=== PATIENT | female | born 1975 | race African-American/Black ===

== ENCOUNTER → 2017-02-25 | Outpatient (CLI) | payer MEDICARE ==
--- NOTE | 2017-02-25 15:07 | US ---
EXAMINATION TYPE: US abdomen complete DATE OF EXAM: 02/25/2017 COMPARISON: NONE CLINICAL HISTORY: R10.2 PELVIC PAIN,R10.30 LOWER ABD PAIN. EXAM MEASUREMENTS: Liver Length: 12.5 cm Gallbladder Wall: Surgically absent cm CBD: 0.6 cm Spleen: 8.5 cm Right Kidney: 10.3 x 4.5 x 5.5 cm Left Kidney: 9.6 x 5.7 x 5.4 cm Pancreas: visualized portions wnl Liver: echogenic lesion near dome measures 2.7 x 2.1 x 1.8 cm Gallbladder: Surgically absent CBD: wnl Spleen: wnl Right Kidney: No hydronephrosis or masses seen no nephrolithiasis. Left Kidney: upper pole echogenic lesion measures 0.7 x 0.8 x 0.9 cm. No hydronephrosis or nephrol ithiasis. Upper IVC: wnl Abd Aorta: wnl IMPRESSION: 1. There is a 2.7 cm echogenic lesion involving the dome of the liver which most likely is related to hemangioma. This could be confirmed with CT scan. 2. Indeterminate left renal lesions due to small size. Could represent a small angiomyolipoma and cou ld also be evaluated with CT scan.
--- NOTE | 2017-02-25 15:09 | US ---
EXAMINATION TYPE: US pelvis complete transvag DATE OF EXAM: 02/25/2017 COMPARISON: NONE CLINICAL HISTORY: R10.2 PELVIC PAIN,R10.30 LOWER ABD PAIN. TECHNIQUE: Transvaginal (TV) and Transabdominal (TA) Date of LMP: patient states no cycles due to thyroid disorder EXAM MEASUREMENTS: Uterus: 7.3 x 3.2 x 5.2 cm Endometrial Stripe: 0.3 cm Right Ovary: 2.7 x 2.1 x 2.2 cm Left Ovary: 2.9 x 1.4 x 2.3 cm 1. Uterus: Anteverted heterogeneous with 1.3 x 1.0 x 1.3 cm fibroid 2. Endometrium: wnl 3. Right Ovary: wnl 4. Left Ovary: cyst measures 2.2 x 1.0 x 1.5 cm . 5. Bilateral Adnexa: wnl 6. Posterior cul-de-sac: no free fluid IMPRESSION: 1. The uterus is heterogeneous and contains a 1.3 cm hypoechoic lesion likely on the basis of a uteri ne fibroid. 2. Simple appearing left ovarian cyst measuring 2.2 cm.
== END ==
LOC: RADUSWWP 14:04
PROVIDERS: ATTEND Nurse Practitioner Family
DX: N83.202 Unspecified ovarian cyst, left side (principal); N28.89 Other specified disorders of kidney and ureter
CPT/HCPCS: 76700; 76830; 76856

== ENCOUNTER 2017-04-04 21:06 | Emergency (ER) | payer MEDICARE ==
[2017-04-04] MEDS ORDERED: ASPIRIN 81 MG PO STA (21:37)
--- NOTE | 2017-04-04 21:40 | ED ---
Chest Pain HPI - General Chief Complaint: Chest Pain Stated Complaint: Chest pain Time Seen by Provider: 04/04/17 21:11 Source: patient, RN/MD, EMS, RN notes reviewed Mode of arrival: EMS Limitations: no limitations - History of Present Illness Initial Comments: This is a 41-year-old female who states she has a history of angina as well as reversing the past who is a nonsmoker nondrinker who states for last week or so she's had retrosternal chest pain on the right side. 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 She states the pain normally goes away with rest but this time it wasn't going away spicy today and last more than an hour was dull pressure-like right sided 5/10 in severity. She also states that today it radiated from her front to her back. She's had no fevers no chills or sweats no cough or phlegm production. She states she had episodes at work today also even in spite of wearing a mask to shield her from the chemical exposure. Rested help today. MD Complaint: chest pain - Related Data Previous Rx's Medication Instructions Recorded Nitroglycerin Sl Tabs [Nitrostat] 0.4 mg SUBLINGUAL Q5M PRN #25 tab 04/04/17 Allergies Allergy/AdvReac Type Severity Reaction Status Date / Time oxcarbazepine Allergy Rash/Hives Verified 04/04/17 22:04 [From Trileptal] quetiapine [From Seroquel] AdvReac BLOOD Verified 04/04/17 22:04 PRESSURE DROPS sulfamethoxazole AdvReac Itching Verified 04/04/17 22:04 [From Bactrim] trimethoprim [From Bactrim] AdvReac Itching Verified 04/04/17 22:04 Review of Systems ROS Statement: Those systems with pertinent positive or pertinent negative responses have been documented in the HPI. ROS Other: All systems not noted in ROS Statement are negative. EKG Findings - EKG Results: EKG: interpreted by ANDERS WNL, sinus rhythm, normal axis, normal QRS, normal ST/ T, no acute changes (EKG shows normal sinus rhythm a 65 appear interval 138 QRS duration 82 QT since QTC of 422/[address]-T wave changes.) Past Medical History Additional Past Medical History / Comment(s): angina History of Any Multi-Drug Resistant Organisms: None Reported Past Psychological History: No Psychological Hx Reported Smoking Status: Never smoker Past Alcohol Use History: None Reported Past Drug Use History: None Reported General Exam - General Exam Comments Initial Comments: This is a well-developed well-nourished awake alert oriented 3 female Limitations: no limitations General appearance: alert, in no apparent distress Head exam: Present: atraumatic, normocephalic, normal inspection Eye exam: Present: normal appearance, PERRL, EOMI. Absent: scleral icterus, conjunctival injection, periorbital swelling ENT exam: Present: normal exam, mucous membranes moist Neck exam: Present: normal inspection. Absent: tenderness, meningismus, lymphadenopathy Respiratory exam: Present: normal lung sounds bilaterally. Absent: respiratory distress, wheezes, rales, rhonchi, stridor, chest wall tenderness, accessory muscle use Cardiovascular Exam: Present: regular rate, normal rhythm, normal heart sounds. Absent: systolic murmur, diastolic murmur, rubs, gallop, clicks GI/Abdominal exam: Present: soft, normal bowel sounds. Absent: distended, tenderness, guarding, rebound, rigid Extremities exam: Present: normal inspection, full ROM, normal capillary refill. Absent: tenderness, pedal edema, joint swelling, calf tenderness Back exam: Present: normal inspection Neurological exam: Present: alert, oriented X3, CN II-XII intact Psychiatric exam: Present: normal affect, normal mood Skin exam: Present: warm, dry, intact, normal color. Absent: rash Course Vital Signs 04/04/17 04/04/17 21:07 22:36 Temperature 97.9 F 98.0 F Pulse Rate 75 81 Respiratory 18 15 Rate Blood Pressure 138/86 122/56 O2 Sat by Pulse 100 100 Oximetry Chest Pain MDM - MDM The patient continues to be without pain at this time. I did discuss the findings with her x-rays negative for acute findings EKG was normal lab work was essentially within normal limits except for mildly elevated glucose. Patient states she did have a normal stress test 2 years ago. She was offered admission but declined at this time she was advised to take a baby aspirin every day and I will write for prescription for nitroglycerin for her. She is follow-up with her doctor and return if any problems whatsoever. Patient patient does understand and agree with this. Disposition Clinical Impression: Chest pain Disposition: HOME SELF-CARE Condition: Good Instructions: Chest Pain (ED) Additional Instructions: 81 mg of aspirin daily and nitroglycerin to be used when necessary. Follow-up with her doctor and return if any problems. Prescriptions: Nitroglycerin Sl Tabs [Nitrostat] 0.4 mg SUBLINGUAL Q5M PRN #25 tab PRN Reason: Chest Pain Referrals: Flavia Chavez MD [Primary Care Provider] - 1-2 days
[2017-04-04 22:03] LABS: Basophils % (A) 1 %; CH 32.5; CHCM 32.1; Eosinophils # (A) 0.1 k/uL (0-0.7); Eosinophils % (A) 2 %; HCT 40.2 % (34.0-46.0); HDW 1.96; Luc # (Auto) 0.06; Luc % (Auto) 2; Lymphocytes # (A) 1.5 k/uL (1.0-4.8); Lymphocytes % (A) 40 %; MCH 32.9 pg (25.0-35.0); MCHC 32.3 g/dL (31.0-37.0); MCV 101.7 fL (80.0-100.0); Macrocytosis Slight; Mean Platelet Volume 8.6; Monocytes # (A) 0.2 k/uL (0-1.0); Monocytes % (A) 5 %; Neutrophils # (A) 1.9 k/uL (1.3-7.7); Neutrophils % (A) 50 %; RBC 3.96 m/uL (3.80-5.40); RDW 13.1 % (11.5-15.5); WBC 3.8 k/uL (3.8-10.6); WBC (Perox) 3.88
--- NOTE | 2017-04-04 22:06 | XR ---
EXAMINATION TYPE: XR chest 2V DATE OF EXAM: 04/04/2017 COMPARISON: NONE HISTORY: Chest pain TECHNIQUE: Frontal and lateral views of the chest are obtained. FINDINGS: Heart and mediastinum are normal. Lungs are clear. Diaphragm is normal. Bony thorax appear s normal. IMPRESSION: Normal chest
[2017-04-04 22:14] LABS: INR 1.1 (<1.2); Partial Thromboplastin Time 26.4 sec (22.0-30.0)
[2017-04-04 22:16] LABS: ALT 31 U/L (9-52); AST 19 U/L (14-36); Alkaline Phosphatase 84 U/L (38-126); Amylase 65 U/L (30-110); Anion Gap 7 mmol/L; Blood Urea Nitrogen 10 mg/dL (7-17); Calcium 8.9 mg/dL (8.4-10.2); Carbon Dioxide 24 mmol/L (22-30); Chloride 105 mmol/L (98-107); Glucose 85 mg/dL (74-99); Magnesium 1.8 mg/dL (1.6-2.3); Non-African American GFR(MDRD) >60 (>60 ml/min/1.73 sqM); Potassium 3.6 mmol/L (3.5-5.1); Sodium 136 mmol/L (137-145); Total Bilirubin 0.8 mg/dL (0.2-1.3); Total Protein 6.6 g/dL (6.3-8.2)
[2017-04-04 22:23] LABS: Creatine Kinase 106 U/L (30-135)
[2017-04-04 22:36] LABS: Creatine Kinase MB 1.1 ng/mL (0.0-2.4); Troponin I <0.012 ng/mL (0.000-0.034)
[2017-04-04 23:16] VITALS: BP 120/67; PULSE 78; RESP 18; TEMP 98.2
== END 2017-04-04 23:16 | disposition home or self-care (01) ==
LOC: EC 21:06 → SUPCPDRO 21:06 → EC 23:16
DX: R07.9 Chest pain, unspecified (principal); Z88.8 Allergy status to other drugs, medicaments and biological substances; Z88.2 Allergy status to sulfonamides
CPT/HCPCS: 36415; 71020; 80053; 82150; 82550; 82553; 83690; 83735; 83880; 84484; 85025; 85379; 85610; 85730; 93005; 99285

== ENCOUNTER → 2017-06-02 | Outpatient (CLI) | payer MEDICARE ==
--- NOTE | 2017-06-09 13:25 | MM ---
Reason for exam: screening (asymptomatic). Last mammogram was performed 2 years ago. History: Patient is postmenopausal. Family history of breast cancer in aunt. Physical Findings: A clinical breast exam by your physician is recommended on an annual basis and results should be correlated with mammographic findings. MG 3D Screening Mammo W/Cad Bilateral CC and MLO view(s) were taken. Prior study comparison: May 23, 2015, mammogram, performed at [facility]. The breast tissue is heterogeneously dense. This may lower the sensitivity of mammography. No significant changes when compared with prior studies. ASSESSMENT: Negative, BI-RAD 1 RECOMMENDATION: Routine screening mammogram of both breasts in 1 year.
== END | disposition home or self-care (01) ==
LOC: RADMAMWWP 11:00
PROVIDERS: ATTEND Obstetrics & Gynecology
DX: Z12.31 Encounter for screening mammogram for malignant neoplasm of breast (principal)
CPT/HCPCS: 77063; 77067

== ENCOUNTER 2017-10-30 06:00 | Emergency (ER) | payer MEDICARE, OTHER ==
[2017-10-30] MEDS ORDERED: KETOROLAC 30 MG/ML 1 ML VIAL IVP STA (07:41)
--- NOTE | 2017-10-30 07:44 | ED ---
General Adult HPI - General Chief complaint: Extremity Problem,Nontraumatic Stated complaint: Leg swelling Time Seen by Provider: 10/30/17 07:18 Source: patient, RN notes reviewed Mode of arrival: ambulatory Limitations: no limitations - History of Present Illness Initial comments: Patient is a pleasant 42-year-old female presenting to the emergency department with extremity problems. Symptoms have been present for over a month now. Patient has been evaluated for this. Patient has had ultrasound done of her legs twice. Patient has been worked up for cardiac disease including x-ray. Patient has also had x-rays of her lower extremities. Patient state this is not a chronic problem. Patient has been using compression stockings with some improvement of swelling. Patient states there is some discomfort. Patient states the area involved does seem to migrate some. Patient noticed some discoloration in her legs the last few days. - Related Data Previous Rx's Medication Instructions Recorded Nitroglycerin Sl Tabs [Nitrostat] 0.4 mg SUBLINGUAL Q5M PRN #25 tab 04/04/17 Allergies Allergy/AdvReac Type Severity Reaction Status Date / Time oxcarbazepine Allergy Rash/Hives Verified 10/30/17 06:06 [From Trileptal] quetiapine [From Seroquel] AdvReac BLOOD Verified 10/30/17 06:06 PRESSURE DROPS sulfamethoxazole AdvReac Itching Verified 10/30/17 06:06 [From Bactrim] trimethoprim [From Bactrim] AdvReac Itching Verified 10/30/17 06:06 Review of Systems ROS Statement: Those systems with pertinent positive or pertinent negative responses have been documented in the HPI. ROS Other: All systems not noted in ROS Statement are negative. Constitutional: Denies: fever, chills Eyes: Denies: eye pain ENT: Denies: ear pain Respiratory: Denies: cough, dyspnea Cardiovascular: Denies: chest pain Endocrine: Denies: fatigue Gastrointestinal: Denies: abdominal pain Genitourinary: Denies: dysuria Musculoskeletal: Reports: joint swelling, arthralgia. Denies: back pain Skin: Reports: change in color Neurological: Denies: weakness Past Medical History Additional Past Medical History / Comment(s): angina ms History of Any Multi-Drug Resistant Organisms: None Reported Past Surgical History: Cholecystectomy, Hernia Repair Additional Past Surgical History / Comment(s): iud Past Psychological History: Depression Smoking Status: Never smoker Past Alcohol Use History: Rare Past Drug Use History: None Reported General Exam Limitations: no limitations General appearance: alert, in no apparent distress Head exam: Present: atraumatic Eye exam: Present: normal appearance, PERRL ENT exam: Present: normal oropharynx Neck exam: Present: normal inspection Respiratory exam: Present: normal lung sounds bilaterally Cardiovascular Exam: Present: regular rate, normal rhythm Expanded Peripheral pulses: 2+: Dorsalis Pedis (R), Dorsalis Pedis (L) GI/Abdominal exam: Present: soft. Absent: tenderness Extremities exam: Present: other (Bilateral mid foot and ankle with mild swelling. There is moderate tenderness on the right and mild of the left. No calf swelling or calf tenderness. No swelling or tenderness behind the knees.) Neurological exam: Present: alert. Absent: motor sensory deficit Psychiatric exam: Present: normal affect, normal mood Skin exam: Present: other (There does appear to be minimal darker discoloration from the mid foot to the ankle region bilateral.) Course Vital Signs 10/30/17 10/30/17 06:04 09:33 Temperature 98.1 F 98.4 F Pulse Rate 81 70 Respiratory 16 16 Rate Blood Pressure 136/82 124/57 O2 Sat by Pulse 100 100 Oximetry Medical Decision Making - Medical Decision Making Patient reevaluated. Patient states she does not notice much difference with Toradol. Patient explained of concerns and pending tests and need for follow- up. Patient recommended follow-up with primary care physician and consider rheumatology follow-up. Patient is offered a trial of steroids however would like to hold on this. Patient was made aware that this could limit further diagnostic testing. - Lab Data Result diagrams: 10/30/17 09:11 10/30/17 09:11 Lab Results 10/30/17 10/30/17 Range/Units 09:11 09:11 WBC 2.8 L (3.8-10.6) k/uL RBC 3.71 L (3.80-5.40) m/uL Hgb 12.5 (11.4-16.0) gm/dL Hct 37.1 (34.0-46.0) % MCV 100.0 (80.0-100.0) fL MCH 33.7 (25.0-35.0) pg MCHC 33.7 (31.0-37.0) g/dL RDW 13.0 (11.5-15.5) % Plt Count 185 (150-450) k/uL Neutrophils % 48 % Lymphocytes % 40 % Monocytes % 5 % Eosinophils % 3 % Basophils % 1 % Neutrophils # 1.3 (1.3-7.7) k/uL Lymphocytes # 1.1 (1.0-4.8) k/uL Monocytes # 0.2 (0-1.0) k/uL Eosinophils # 0.1 (0-0.7) k/uL Basophils # 0.0 (0-0.2) k/uL ESR 5 (0-20) mm/hr Sodium 140 (137-145) mmol/L Potassium 4.1 (3.5-5.1) mmol/L Chloride 107 (98-107) mmol/L Carbon Dioxide 25 (22-30) mmol/L Anion Gap 8 mmol/L BUN 7 (7-17) mg/dL Creatinine 0.50 L (0.52-1.04) mg/dL Est GFR (CKD-EPI)AfAm >90 (>60 ml/min/1.73 sqM) Est GFR (CKD-EPI)NonAf >90 (>60 ml/min/1.73 sqM) Glucose 91 (74-99) mg/dL Calcium 8.9 (8.4-10.2) mg/dL Total Bilirubin 1.1 (0.2-1.3) mg/dL AST 21 (14-36) U/L ALT 28 (9-52) U/L Alkaline Phosphatase 74 (38-126) U/L C-Reactive Protein <5.0 (<10.0) mg/L Total Protein 6.5 (6.3-8.2) g/dL Albumin 3.8 (3.5-5.0) g/dL Disposition Clinical Impression: Arthralgia, Edema leg Disposition: HOME SELF-CARE Condition: Stable Instructions: Leg Edema (ED), Arthritis (ED) Additional Instructions: Please follow-up with primary care physician in the next day or 2 for recheck. Also consider rheumatology evaluation. Have your doctor review lab tests that are still pending from today including white blood cell count from today. Return for fever, increased swelling, increased discoloration, redness, increased pain, worsening symptoms or other concerns. [id number] anti- inflammatories if needed for discomfort. Is patient prescribed a controlled substance at d/c from ED?: No Referrals: Flavia Chavez MD [Primary Care Provider] - 1-2 days Catarina Santoyo MD [STAFF PHYSICIAN] - 1-2 days Time of Disposition: 10:44
[2017-10-30 09:34] VITALS: TEMP 98.4
[2017-10-30 09:35] LABS: Basophils % (A) 1 %; Eosinophils # (A) 0.1 k/uL (0-0.7); Eosinophils % (A) 3 %; HCT 37.1 % (34.0-46.0); HGB 12.5 gm/dL (11.4-16.0); Lymphocytes # (A) 1.1 k/uL (1.0-4.8); Lymphocytes % (A) 40 %; MCH 33.7 pg (25.0-35.0); MCHC 33.7 g/dL (31.0-37.0); Mean Platelet Volume 7.9; Monocytes # (A) 0.2 k/uL (0-1.0); Monocytes % (A) 5 %; Neutrophils # (A) 1.3 k/uL (1.3-7.7); Neutrophils % (A) 48 %; Platelet Count 185 k/uL (150-450); RBC 3.71 m/uL (3.80-5.40); WBC 2.8 k/uL (3.8-10.6)
[2017-10-30 09:46] LABS: ALT 28 U/L (9-52); AST 21 U/L (14-36); Albumin 3.8 g/dL (3.5-5.0); Alkaline Phosphatase 74 U/L (38-126); Anion Gap 8 mmol/L; Blood Urea Nitrogen 7 mg/dL (7-17); C Reactive Protein <5.0 mg/L (<10.0); Calcium 8.9 mg/dL (8.4-10.2); Carbon Dioxide 25 mmol/L (22-30); Chloride 107 mmol/L (98-107); Glucose 91 mg/dL (74-99); Potassium 4.1 mmol/L (3.5-5.1); Sodium 140 mmol/L (137-145); Total Bilirubin 1.1 mg/dL (0.2-1.3); Total Protein 6.5 g/dL (6.3-8.2)
[2017-10-30 10:34] LABS: Erythrocyte Sedimentation Rate 5 mm/hr (0-20)
[2017-10-30 10:44] VITALS: BP 108/53; PULSE 78; RESP 20
[2017-10-31 09:46] LABS: Rheumatoid Factor 7 IU/mL (0-15)
[2017-11-01 09:05] LABS: Lyme IgG/IgM 0.1 Index
[2017-11-01 14:40] LABS: APTT 38 Sec(s) (<43); Dilute Russell Viper Venom 31 Sec(s) (<44)
== END 2017-10-30 10:48 | disposition home or self-care (01) ==
LOC: EC 06:00
DX: M25.572 Pain in left ankle and joints of left foot (principal); M25.571 Pain in right ankle and joints of right foot; R60.0 Localized edema; R23.8 Other skin changes; Z88.1 Allergy status to other antibiotic agents; Z88.8 Allergy status to other drugs, medicaments and biological substances
CPT/HCPCS: 36415; 80053; 85652; 85025; 85730; 86140; 86431; 85613; 86618; 86038; 99283; 96374; J1885

== ENCOUNTER → 2017-11-03 | Outpatient (CLI) | payer MEDICARE ==
--- NOTE | 2017-11-03 13:04 | US ---
EXAMINATION TYPE: US venous doppler duplex LE DATE OF EXAM: 11/03/2017 12:38 PM COMPARISON: NONE CLINICAL HISTORY: R22.43Localized swelling, mass and lump, lower heller. Bilateral leg swelling SIDE PERFORMED: Bilateral TECHNIQUE: The lower extremity deep venous system is examined utilizing real time linear array sonog gilmer with graded compression, doppler sonography and color-flow sonography. VESSELS IMAGED: External Iliac Vein (EIV) Common Femoral Vein Deep Femoral Vein Greater Saphenous Vein * Femoral Vein Popliteal Vein Small Saphenous Vein * Proximal Calf Veins (* superficial vessels) Grayscale, color doppler, spectral doppler imaging performed of the deep veins of the lower extremiti es. There is normal flow, compressibility, vascular waveforms. Right Leg: Negative for DVT Left Leg: Negative for DVT IMPRESSION: No evidence for DVT at this time.
== END | disposition home or self-care (01) ==
LOC: RADUSWWP 11:51
PROVIDERS: ATTEND Family Medicine
DX: R22.43 Localized swelling, mass and lump, lower limb, bilateral (principal)
CPT/HCPCS: 93970